=== PATIENT | female | born 1990 | race Hispanic/Latino ===

== ENCOUNTER 2016-10-30 20:17 | Emergency (ER) | payer BC ==
[2016-10-30 20:17] VITALS: BMI 34.2
[2016-10-30 20:34] VITALS: BP 143/94; PULSE 92; RESP 18; TEMP 99.3; O2SAT 99
== END 2016-10-30 21:43 | disposition left against medical advice (07) ==
LOC: ED 20:17
DX: Z02.89 Encounter for other administrative examinations (principal); R10.9 Unspecified abdominal pain